=== PATIENT | male | born 1970 | race Caucasian/White ===

== ENCOUNTER 2020-08-29 10:05 | Emergency (ER) | payer OTHER ==
[~2020-08-29] VITALS: Ht 180.3 cm; Wt 81.7 kg
[2020-08-29] MEDS ORDERED: PEPCID20 MG PO (10:13)
[2020-08-29 10:33] LABS: ABSOLUTE BASOPHILS 0.1 thou/uL (0.0-0.2); ABSOLUTE EOSINOPHILS 0.1 thou/uL (0.0-0.7); ABSOLUTE LYMPHOCYTES 1.6 thou/uL (0.8-5.3); ABSOLUTE MONOCYTES 0.9 thou/uL (0.0-1.2); ABSOLUTE NEUTROPHILS 5.8 thou/uL (1.6-8.1); BASOPHILS 0.8 %; EOSINOPHILS 0.8 %; HEMATOCRIT 43.9 % (42.0-52.0); HEMOGLOBIN 15.3 gm/dL (14.0-18.0); MCH 32.8 pg (26.0-34.0); MCHC 34.8 g/dL (28.0-37.0); MCV 94.2 fL (80.0-100.0); MONOCYTES 10.4 %; MPV 8.9 fl. (7.2-11.1); NUCLEATED RBCS 0 /100WBC; PLATELET COUNT* 246 thou/uL (150-400); RBC 4.66 mil/uL (4.50-6.00); RDW-CV 13.3 % (10.5-14.5); WBC 8.5 thou/uL (4.0-11.0)
[2020-08-29 10:41] LABS: CALCIUM 9.1 mg/dL (8.5-10.1); CREATININE 1.3 mg/dL (0.6-1.3); POTASSIUM 3.3 mmol/L (3.5-5.1)
[2020-08-29 10:46] LABS: ALBUMIN 4.2 g/dL (3.4-5.0); TOTAL BILIRUBIN 0.9 mg/dL (<0.1-1.0); TOTAL PROTEIN 7.7 g/dL (6.4-8.2)
[2020-08-29 10:47] LABS: URINE BLOOD NEGATIVE (Negative); URINE CLARITY CLEAR; URINE COLOR YELLOW; URINE GLUCOSE-RANDOM NEGATIVE (Negative); URINE KETONES 1+ (Negative); URINE LEUKOCYTES-REFLEX NEGATIVE (Negative); URINE NITRITE-REFLEX NEGATIVE (Negative); URINE PROTEIN TRACE (Negative); URINE SPECIFIC GRAVITY 1.025 (1.005-1.030)
[2020-08-29 10:51] LABS: ICTOTEST (BILI CONFIRMATORY) Negative (Negative); URINE BILIRUBIN 2+ (Negative)
[2020-08-29 10:54] LABS: AMP/METHAMP Negative (Negative); BARBITURATES Negative (Negative); BENZODIAZEPINES Negative (Negative); COCAINE Negative (Negative); METHADONE Negative (Negative); OPIATES Negative (Negative); PCP Negative (Negative); THC POSITIVE (Negative)
[2020-08-29] MEDS ORDERED: PHENERGAN 25 MG25 M1 PO (13:09)
[2020-08-29] MEDS ORDERED: PROMS25 WY RECTAL (13:09)
[2020-08-29 13:29] VITALS: BP 151/96
--- NOTE | 2020-08-30 14:37 | EKG ---
[place] [address] ELECTROCARDIOGRAM REPORT Name: BECCA QURESHI Room: [facility]#: [id number] Admission: 08/29/20 Attend Phys: Discharge: 08/29/20 Date of : 72 Date of Service: 08/29/20 1027 Report #: [id number] THIS REPORT FOR: //name// [facility] ED Test Date: 2020-08-29 Test Time: 10:27:43 Pat Name: BECCA QURESHI Department: Room: Gender: Territory Representative: MICHAEL : 1970 Requested By: Chong Sapp Order Number: [id number] MD: Brad Griffin Measurements Intervals [place] Rate: 58 P: 57 ND: 159 QRS: 7 QRSD: 84 T: 34 QT: 417 QTc: 410 Interpretive Statements Sinus rhythm Baseline wander in lead(s) I,II,aVR No previous ECG available for comparison Electronically Signed On 08-30-2020 14:36:59 [facility] [employer] NEED CONSULTANT by Brad Griffin [email or web address] <ELECTRONICALLY SIGNED> By: Brad Griffin MD, [facility] 08/30/20 1436 1027 [facility]7 Brad Griffin MD, [facility] /EPI
== END 2020-08-29 13:31 | disposition home or self-care (01) ==
LOC: M.ERS 10:05
PROVIDERS: Emergency Medicine Emergency Medical Services
DX: R11.2 Nausea with vomiting, unspecified (principal); R10.84 Generalized abdominal pain; Z79.899 Other long term (current) drug therapy